=== PATIENT | male | born 1945 | race Caucasian/White ===

== ENCOUNTER → 2023-02-21 10:26 | Outpatient (CLI) | payer OTHER, SELFPAY ==
--- NOTE | 2023-02-21 | CA_ITS ---
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 2D Dimensions Left Atrium 4.56 cm LVEF (Granados's) 40.40 % LVOT 1.97 cm (M/F) 1.5-2.5 LV Volume 160.20 mL EF AP4 38.10 % EF AP2 39.3 % EF BP 40.4 % GL Strain -12.8 % M-Mode Dimensions RVDd 3.00 cm (0.9-2.6) LVDd 6.04 cm (3.5-5.7) Ao Diam 4.69 cm (2.0-3.7) LVDs 4.43 cm (3.5-5.7) IVSd 1.97 cm (0.6-1.1) PWd 0.58 cm (0.6-1.1) EF (Teich) 51.30% FS 26.70% EDV (Teich) 182.80 mL TAPSE 2.69 (<1.7) ESV (Teich) 89.10 mL LV Diastology E Decel Time 250 (160-240 msec) E/A Ratio 0.66 MED E' 6.0 (>= 7 cm/sec) MED A' 9.00 cm/s E'/MED E' Ratio 9.72 (<= 14) LAT E' 9.1 (>= 10 cm/sec) LAT A' 7.20 cm/s E/LAT E' Ratio 6.41 (<= 14) Aortic Valve AoV Peak Raheem. 136.0 (50-130 cm/s) AO Peak GR. 7.40 mmHg Mitral Valve MV E Max Raheem. 58.0 (40-130 cm/s) MV A Velocity 88.0 (40-130 cm/s) E/A Ratio 0.66 MV Decel. Time 250 (160-240 ms) Tricuspid Valve TR P. Velocity 175.00 cm/s RAP Estimate 10.00 mmHg RVSP 22.20 mmHg Left Ventricle The left ventricle is normal size. Left ventricular systolic function is mildly reduced. There is increased LV wall thickness. Mild global hypokinesis is present. There is near akinesis of the LV apical wall. Transmitral Doppler flow pattern suggests impaired LV relaxation. LVEF is 50% Right Ventricle The right ventricle is normal size. The right ventricular systolic function is normal. Atria The left atrium size is normal. The right atrium size is normal. There is no Doppler evidence of interatrial shunt. Aortic Valve The aortic valve is mildly thickened. There is no aortic valvular stenosis. No aortic regurgitation is present. Mitral Valve The mitral valve is mildly thickened. No evidence of mitral valve stenosis. Trace mitral valve regurgitation. Tricuspid Valve The tricuspid valve leaflets are thin and pliable. Trace tricuspid regurgitation. There is insufficient TR jet to estimate RVSP. Pulmonic Valve The pulmonary valve is normal in structure. Trace pulmonic regurgitation. Great Vessels The aortic root is normal in size. The ascending aorta is not well visualized. IVC is normal in size and collapses >50% with inspiration. Pericardium There is no pericardial effusion. Other Information Study Quality: Fair Conclusion Mildly reduced LV systolic function (LVEF 45%). Near akinesis of the LV apical wall. No significant valvular stenosis or regurgitation. Further evaluation for LV thrombus using ultrasound enhancing agent is recommended in the setting of known prior history of LV thrombus and presence of LV apical wall hypokinesis. Electronically signed by : Tanisha Boswell MD 02/25/2023 19:37:01
== END ==
PROVIDERS: Visit Provider Chiropractor
DX: I25.10 Atherosclerotic heart disease of native coronary artery without angina pectoris (principal)
CPT/HCPCS: 93306